=== PATIENT | female | born 1945 | race Native Hawaiian/Other Pacific Islander ===

== ENCOUNTER 2016-12-10 12:01 | Outpatient (CLI) | payer OTHER, MEDICARE | END 2016-12-10 13:05 | disposition home or self-care (01) | LOC: LABW 12:01 | DX: R10.13 Epigastric pain (principal) | CPT/HCPCS: 36415; 86318 ==

== ENCOUNTER 2017-01-29 09:52 | Outpatient (CLI) | payer OTHER, MEDICARE | END 2017-01-29 18:57 | disposition home or self-care (01) | LOC: LABW 09:52 | DX: A04.8 Other specified bacterial intestinal infections (principal) | CPT/HCPCS: 87338 ==

== ENCOUNTER 2017-06-02 11:18 | Inpatient (IN) | payer OTHER, MEDICARE ==
[~2017-06-02] VITALS: Ht 160 cm; Wt 81.0 kg
[2017-06-02 12:34] VITALS: BP 119/74; TEMP 98.8; Ht 160 cm; Wt 81.0 kg
[2017-06-02 13:04] LABS: PLATELET COUNT 192 K/uL (152-353)
[2017-06-02 13:29] LABS: POTASSIUM 2.8 mmol/L (3.6-5.2)
[2017-06-02] MEDS ORDERED: FLUTMIS14 INH ×2 (15:35→15:43)
[2017-06-02] MEDS ORDERED: RANITIDINE 150150 MG PO (15:36)
[2017-06-02] MEDS ORDERED: LEVO-T50 MCG PO (15:37)
[2017-06-02] MEDS ORDERED: MONTELUKAST SOD10 MG PO (15:37)
[2017-06-02] MEDS ORDERED: XYZAL ALLERGY 245 MG PO (15:44)
[2017-06-02] MEDS ORDERED: LOSA50TA PO (15:44)
[2017-06-02] MEDS ORDERED: HYDROCHLOROT12.5 M1 PO (15:45)
[2017-06-02] MEDS ORDERED: ZOCOR80 MG OR (15:45)
[2017-06-02] MEDS ORDERED: LINZESS72 MCG PO (15:46)
[2017-06-02] MEDS ORDERED: ATEN50TA36 PO (15:46)
[2017-06-02] MEDS ORDERED: ACET-689 PO (15:49)
[2017-06-02] MEDS ORDERED: FLUOXETINE20 MG PO (15:50)
[2017-06-02] MEDS ORDERED: XANAX XR0.5 MG OR (15:52)
[2017-06-02] MEDS ORDERED: PROAIR HFA IN (15:52)
[2017-06-02] MEDS ORDERED: FURO40TA93 PO (15:53)
[2017-06-02 16:00] VITALS: BP 126/66; TEMP 98.9
[2017-06-02 20:00] VITALS: BP 142/57; TEMP 98.3
[2017-06-03] VITALS (25 sets, daily range): BP systolic 90–183; BP diastolic 61–120; TEMP 97.7–98.6
[2017-06-03 05:10] LABS: PLATELET COUNT 170 K/uL (152-353)
[2017-06-03 05:31] LABS: POTASSIUM 2.8 mmol/L (3.6-5.2)
[2017-06-04] VITALS (32 sets, daily range): BP systolic 88–147; BP diastolic 40–83; TEMP 98.2–99.5
[2017-06-04 05:05] LABS: PLATELET COUNT 178 K/uL (152-353)
[2017-06-04 05:21] LABS: POTASSIUM 3.4 mmol/L (3.6-5.2)
[2017-06-05] VITALS: BP 148/60; TEMP 98.6
[2017-06-05 02:00] VITALS: BP 145/71
[2017-06-05 04:00] VITALS: BP 147/84; TEMP 98.2
[2017-06-05 06:10] LABS: PLATELET COUNT 168 K/uL (152-353)
[2017-06-05 06:39] LABS: POTASSIUM 3.1 mmol/L (3.6-5.2)
[2017-06-05 08:00] VITALS: BP 140/75
[2017-06-05 12:00] VITALS: BP 130/64
[2017-06-05 20:00] VITALS: BP 166/91; TEMP 98.7
[2017-06-06] VITALS: BP 165/93; TEMP 98.9
[2017-06-06 04:00] VITALS: BP 120/54; TEMP 98.7
[2017-06-06 07:01] LABS: PLATELET COUNT 150 K/uL (152-353)
[2017-06-06 08:00] VITALS: BP 113/53; TEMP 98.8
[2017-06-06 12:00] VITALS: BP 117/54; TEMP 98.1
[2017-06-06 20:00] VITALS: BP 119/60; TEMP 98.9
[2017-06-07 04:53] LABS: PLATELET COUNT 139 K/uL (152-353)
== END 2017-06-07 13:25 | disposition home or self-care (01) | DRG 190 ==
LOC: ICU 11:18 → MED/SURG 11:18 → ICU 06-03 13:47 → MED/SURG 06-03 13:47 → ICU 06-03 13:47 → MED/SURG 06-04 18:23 → ICU 06-04 18:23 → MED/SURG 06-05 14:00
PROVIDERS: Nurse Practitioner Family; ADMIT Emergency Medicine
DX: J44.1 Chronic obstructive pulmonary disease with (acute) exacerbation (principal); J96.00 Acute respiratory failure, unspecified whether with hypoxia or hypercapnia; I10 Essential (primary) hypertension; F41.8 Other specified anxiety disorders; E78.4 Other hyperlipidemia; K21.9 Gastro-esophageal reflux disease without esophagitis; E03.8 Other specified hypothyroidism; E87.70 Fluid overload, unspecified; R41.82 Altered mental status, unspecified
CPT/HCPCS: 36415; 36600; 51702; 80053; 82805; 85027; 87040; 87070; 87077; 87205; 87899; 93005; 94640; 94664; 94760; 96366; 96367; 96372; J1650; J1940; J3480